=== PATIENT | male | born 1980 ===

== ENCOUNTER 2018-08-31 07:20 | Inpatient (IN) | payer SELFPAY ==
[2018-08-31] MEDS ORDERED: Sodium Chloride 0.9% 1,000 ML IV STA (08:53)
--- NOTE | 2018-08-31 09:06 | ED PDOC ---
HPI:Nausea, Vomiting, Diarrhea Time Seen by Provider: 08/31/18 08:18 Chief Complaint (Nursing): Headache Chief Complaint (Provider): Vomiting and Headache History Per: Patient History/Exam Limitations: no limitations Onset/Duration Of Symptoms: Days Current Symptoms Are (Timing): Still Present Associated Symptoms: Nausea, Vomiting Additional Complaint(s): 38 y/o male with a PMHx of HIV presents to the ED for evaluation of vomiting. Patient reports he was seen last Sunday at [facility] for the same symptom and was discharged home. As per discharge paperwork, patient was discharged with a diagnosis of alcohol use, elevated liver enzymes and gastritis. However, patient reports of no improvement since discharge. At this time, patient states vomiting is associated with yellow skin and itchy skin, headache, lightheadedness, nausea and decreased appetite. Patient reports he only develops a headache when he eats and typically goes away on its own. Otherwise, patient denies headache any other time. Patient reports yellow, itchy skin only began 2 days ago and was not present when he was seen and evaluated at [facility]. Patient additionally reports his last drink was last week. At this time, patient denies diarrhea, abdominal pain, alcohol use, drug use, chest pain and shortness of breath. Headache is mild, not worst in his life. No numbness, tingles, neck pain. PMD: Tristan Argaon from [facility] in [place], [place]. Past Medical History Reviewed: Historical Data, Nursing Documentation, Vital Signs Vital Signs: Last Vital Signs Temp 98.7 F 08/31/18 07:26 Pulse 76 08/31/18 07:26 Resp 18 08/31/18 07:26 BP 137/76 08/31/18 07:26 Pulse Ox 97 08/31/18 07:26 - Medical History PMH: Gastritis, HIV - Surgical History Surgical History: No Surg Hx - Family History Family History: States: Unknown Family Hx - Social History Alcohol: None (Last use was last week) Drugs: Denies - Immunization History Hx Tetanus Toxoid Vaccination: No Hx Influenza Vaccination: No Hx Pneumococcal Vaccination: No - Home Medications Home Medications: Ambulatory Orders Medication Instructions Recorded Ondansetron ODT [Zofran ODT] 1 odt PO BID PRN #10 odt 08/24/18 Pantoprazole Sodium [Protonix] 40 mg PO DAILY #15 ect 08/24/18 traZODone [trazodone Hydrochloride] 100 mg PO HS 08/24/18 - Allergies Allergies/Adverse Reactions: Allergies Allergy/AdvReac Type Severity Reaction Status Date / Time No Known Allergies Allergy Verified 08/24/18 20:19 Review of Systems ROS Statement: Except As Marked, All Systems Reviewed And Found Negative Cardiovascular: Negative for: Chest Pain Respiratory: Negative for: Shortness of Breath Gastrointestinal: Positive for: Nausea, Vomiting, Other (decreased appetite). Negative for: Abdominal Pain, Diarrhea Skin: Positive for: Jaundice, Other (Itchy) Neurological: Positive for: Headache (only when eating. ), Other (Lightheadedness) Physical Exam - Reviewed Nursing Documentation Reviewed: Yes Vital Signs Reviewed: Yes - Physical Exam Appears: Positive for: Uncomfortable Head Exam: Positive for: ATRAUMATIC Skin: Positive for: Jaundice Eye Exam: Positive for: EOMI, PERRL, Scleral icterus. Negative for: Periorbital swelling, Periorbital tenderness ENT: Positive for: Normal ENT Inspection. Negative for: Nasal Congestion Neck: Positive for: Normal Cardiovascular/Chest: Positive for: Regular Rate, Rhythm. Negative for: Murmur Respiratory: Positive for: Normal Breath Sounds. Negative for: Respiratory Distress Gastrointestinal/Abdominal: Positive for: Soft, Tenderness (Mild tenderenss to the RUQ, LUQ and epigastric area) Back: Negative for: L CVA Tenderness, R CVA Tenderness Extremity: Positive for: Normal ROM. Negative for: Deformity Neurologic/Psych: Positive for: Alert, cylinder valve repairer II-XII, Oriented (x3). Negative for: Motor/Sensory Deficits, Facial Droop - Laboratory Results Result Diagrams: 08/31/18 09:18 08/31/18 09:18 Interpretation Of Abn Labs: 14 bili, elevated liver enzymes - ECG O2 Sat by Pulse Oximetry: 97 (RA) Pulse Ox Interpretation: Normal - CT Scan/US US Other Rad Studies (CT/US): Radiology Report Reviewed Other Rad Interpretation: 6.4mm wall thickness - Progress ED Course And Treament: 1121: Pt. stable. AAOx3. Surgery to see pt. 1145: Spoke with Dr. Marinelli. Agrees with current care. Wants surgery to see pt. Will give antibiotics. 1150: Stable. Spoke with Dr. Hermosillo. Will admit. Pain controlled. - Critical Care Total Time (In Min): 30 Documented Critical Care: Time excludes all time spent performint seperately billable procedures Medical Decision Making Medical Decision Making: Time: 917 Impression: Previous records reviewed, patient seen and evaluated at [facility] ER on 08/25. CT Abd/Pelvis of the patient showed hepatic steatosis and potential cholecystitis. Plan: -- VBG -- Alcohol Serum -- CMP -- Urine Drug Screen -- Lipase -- CBC with Differentials -- PTT -- Prothrombin Time -- Sodium Chloride IV 1000 mls/hr -- Pepcid 20 mg IVP -- Zofran INJ 4 mg IV -- Blood Culture -- US Abdomen Limited Scribe Attestation: Documented by Anna Gomez, acting as a scribe for Yifan Cortez MD. Provider Scribe Attestation: All medical record entries made by the Scribe were at my direction and personally dictated by me. I have reviewed the chart and agree that the record accurately reflects my personal performance of the history, physical exam, medical decision making, and the department course for this patient. I have also personally directed, reviewed, and agree with the discharge instructions and disposition. Disposition - Clinical Impression Clinical Impression: Elevated liver enzymes, Jaundice, Cholecystitis - Patient ED Disposition Is Patient to be Admitted: Yes Counseled Patient/Family Regarding: Studies Performed, Diagnosis - Disposition Disposition Time: 11:00 Condition: FAIR - Pt Status Changed To: Hospital Disposition Of: Inpatient - Admit Certification Admit to Inpatient:: After my assessment, the patient will require hospitalization for at least two midnights. This is because of the severity of symptoms shown, intensity of services needed, and/or the medical risk in this patient being treated as an outpatient. - POA Present On Arrival: None
[2018-08-31 09:21] LABS: BASO # 0.1 K/uL (0.0-0.2); BASO % 2.4 % (0.0-2.0); HEMOGLOBIN 15.4 g/dL (12.0-18.0); LYMPH # 1.3 K/uL (1.0-4.3); LYMPH % 31.6 % (20.0-40.0); MEAN CELL VOLUME 87.4 fl (80.0-94.0); MEAN CORPUSCULAR HEMOGLOBIN 29.5 pg (27.0-31.0); MEAN CORPUSCULAR HGB CONC 33.8 g/dL (33.0-37.0); MEAN PLATELET VOLUME 8.4 fl (7.2-11.7); MONO # 0.6 K/uL (0.0-0.8); NEUT # 2.2 K/uL (1.8-7.0); RBC 5.22 Mil/uL (4.40-5.90); RED CELL DISTRIBUTION WIDTH 15.4 % (11.5-14.5); WHITE BLOOD COUNT 4.3 K/uL (4.8-10.8)
[2018-08-31 09:34] LABS: INR 1.2; PROTHROMBIN TIME 13.3 Seconds (9.8-13.1)
[2018-08-31 09:36] LABS: PARTIAL THROMBOPLASTIN TIME 39.1 Seconds (25.6-37.1)
[2018-08-31 09:37] LABS: ALB/GLOB RATIO 0.9 (1.0-2.1); ALBUMIN 3.8 g/dL (3.5-5.0); ALT/SGPT 507 U/L (21-72); AST/SGOT 514 U/L (17-59); BLOOD UREA NITROGEN 3 mg/dl (9-20); GFR NON-AFRICAN AMERICAN > 60; LIPASE 124 U/L (23-300)
[2018-08-31 09:57] LABS: VENOUS BLOOD GAS BASE EXCESS 2.4 mmol/L (0.0-2.0); VENOUS BLOOD GAS PCO2 42 mmHg (40-60); VENOUS BLOOD GAS PO2 39 mm/Hg (30-55); VENOUS BLOOD PH 7.42 (7.32-7.43)
[2018-08-31 09:58] LABS: BARBITURATES, UR NEGATIVE (NEGATIVE); BENZODIAZEPINES, UR NEGATIVE (NEGATIVE); OPIATES, UR NEGATIVE (NEGATIVE); PHENCYCLIDINE, UR NEGATIVE (NEGATIVE)
[2018-08-31] MEDS ORDERED: cefTRIAXone (Rocephin) 1 gm Inj IV ONE (11:51)
[2018-08-31] MEDS ORDERED: metroNIDAZOLE 500mg/100ml NS 100 ML IV STA (11:51)
--- NOTE | 2018-08-31 12:06 | CP.PCM.CON ---
<Clarence Aj - Last Filed: 08/31/18 12:41> History of Present Illness - History of Present Illness History of Present Illness: General Surgery Consult Note- Dr. Darden 38M pmhx significant for HIV on Genvoya, ETOH abuse for 2 years presents to [facility] ED today for continuing yellow in eyes, nausea and non-bloody, serobilious vomiting for greater than 1 week. Emesis provoked after drinking etoh. Patient admits to drinking beer, at least two 6 packs per day for 2 years. In addition states right and left subcostal abdominal pain after drinking. Pain is currently subsided during examination. Of note patient went to [facility] last week with similar symptoms however was discharged home in stable condition after abd pain resolved. During ED workup: US showed GBW thickening approx 6.5 mm, no pericholecystic fluid, CBD 2.5mm. Transamnitis, and elevated t.bili, subsequently surgery was consulted. PMH: stated above. last HIV check was 2 months ago, stated undetectable. 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 at [facility] PSH: denies ALL: NKDA SocialHx: Drinks 2 6ppd for 2+ years after finding out pt had HIV, denies tobacco, recreational drug use FH: non-contributory ROS: 12 pt ROS conducted, negative otherwise stated above Review of Systems - Review of Systems All systems: reviewed and no additional remarkable complaints except - Constitutional Constitutional: As Per HPI Past Patient History - Infectious Disease Hx of Infectious Diseases: None - Past Social History Alcohol: None (Last use was last week) Drugs: Denies - HEMATOLOGICAL/ONCOLOGICAL Hx Human Immunodeficiency Virus (HIV): Yes - GASTROINTESTINAL Hx Gastritis: Yes - PSYCHIATRIC Hx Substance Use: No - SURGICAL HISTORY Hx Surgeries: No - ANESTHESIA Hx Anesthesia: No Hx Anesthesia Reactions: No Hx Malignant Hyperthermia: No Meds Allergies/Adverse Reactions: Allergies Allergy/AdvReac Type Severity Reaction Status Date / Time No Known Allergies Allergy Verified 08/24/18 20:19 - Medications Medications: Current Medications Ceftriaxone Sodium (Rocephin) 1 gm IV ONCE ONE; Protocol Stop: 08/31/18 11:52 Metronidazole (Flagyl 500mg/100ml Ns) 100 mls @ 100 mls/hr IV STAT STA; Protocol Stop: 08/31/18 12:50 Physical Exam - Constitutional Appears: Non-toxic, No Acute Distress - Head Exam Head Exam: ATRAUMATIC - Eye Exam Eye Exam: Scleral icterus - ENT Exam ENT Exam: Mucous Membranes Moist - Neck Exam Neck exam: Positive for: Normal Inspection. Negative for: Lymphadenopathy - Respiratory Exam Respiratory Exam: NORMAL BREATHING PATTERN. absent: Accessory Muscle Use, Re spiratory Distress - Cardiovascular Exam Cardiovascular Exam: REGULAR RHYTHM, +S1, +S2. absent: Bradycardia, Tachycardia - GI/Abdominal Exam GI & Abdominal Exam: Distended (baseline distendtion), Normal Bowel Sounds, Soft . absent: Firm, Guarding, Rebound, Rigid, Tenderness - Extremities Exam Extremities exam: Positive for: normal inspection. Negative for: calf tenderness - Neurological Exam Neurological exam: Alert, Oriented x3 - Psychiatric Exam Psychiatric exam: Normal Affect - Skin Skin Exam: Intact, Warm Results - Vital Signs Recent Vital Signs: Last Vital Signs Temp 98.7 F 08/31/18 07:26 Pulse 76 08/31/18 07:26 Resp 18 08/31/18 07:26 BP 137/76 08/31/18 07:26 Pulse Ox 97 08/31/18 11:53 - Labs Result Diagrams: 08/31/18 09:18 08/31/18 09:18 Labs: Laboratory Results - last 24 hr 08/31/18 08/31/18 08/31/18 09:18 09:18 09:18 WBC 4.3 L RBC 5.22 Hgb 15.4 Hct 45.6 MCV 87.4 MCH 29.5 MCHC 33.8 RDW 15.4 H Plt Count 177 MPV 8.4 Neut % (Auto) 52.0 Lymph % (Auto) 31.6 [place] % (Auto) 13.0 H Eos % (Auto) 1.0 Baso % (Auto) 2.4 H Neut # (Auto) 2.2 Lymph # (Auto) 1.3 [place] # (Auto) 0.6 Eos # (Auto) 0.0 Baso # (Auto) 0.1 PT INR APTT pO2 VBG pH VBG pCO2 VBG HCO3 VBG Total CO2 VBG O2 Sat (Calc) VBG Base Excess VBG Potassium Glucose Lactate FiO2 Sodium 139 Potassium 4.3 Chloride 105 Carbon Dioxide 24 Anion Gap 14 BUN 3 L Creatinine 0.7 L Est GFR ( Amer) > 60 Est GFR (Non-Af Amer) > 60 Random Glucose 100 Calcium 9.0 Total Bilirubin 14.0 H AST 514 H D ALT 507 H Alkaline Phosphatase 186 H D Total Protein 8.0 Albumin 3.8 Globulin 4.1 H Albumin/Globulin Ratio 0.9 L Lipase 124 Venous Blood Potassium Urine Opiates Screen Negative Urine Methadone Screen Negative Ur Barbiturates Screen Negative Ur Phencyclidine Scrn Negative Ur Amphetamines Screen Negative U Benzodiazepines Scrn Negative U Oth Cocaine Metabols Negative U Cannabinoids Screen Negative Alcohol, Quantitative < 10 08/31/18 08/31/18 09:18 09:45 WBC RBC Hgb Hct MCV MCH MCHC RDW Plt Count MPV Neut % (Auto) Lymph % (Auto) [place] % (Auto) Eos % (Auto) Baso % (Auto) Neut # (Auto) Lymph # (Auto) [place] # (Auto) Eos # (Auto) Baso # (Auto) PT 13.3 H INR 1.2 APTT 39.1 H pO2 39 VBG pH 7.42 VBG pCO2 42 VBG HCO3 26.2 VBG Total CO2 28.5 H VBG O2 Sat (Calc) 79.6 H VBG Base Excess 2.4 H VBG Potassium 5.8 H Glucose 100 Lactate 0.9 FiO2 21.0 Sodium 132.0 Potassium Chloride 103.0 Carbon Dioxide Anion Gap BUN Creatinine Est GFR ( Amer) Est GFR (Non-Af Amer) Random Glucose Calcium Total Bilirubin AST ALT Alkaline Phosphatase Total Protein Albumin Globulin Albumin/Globulin Ratio Lipase Venous Blood Potassium 5.8 H Urine Opiates Screen Urine Methadone Screen Ur Barbiturates Screen Ur Phencyclidine Scrn Ur Amphetamines Screen U Benzodiazepines Scrn U Oth Cocaine Metabols U Cannabinoids Screen Alcohol, Quantitative Assessment & Plan - Assessment and Plan (Free Text) Assessment: 38M pmhx HIV on Genvoya, hx of ETOH use, w/ Transaminitis, hyperbilirubenemia, r/o acute cholecystitis Child-Zavala: Class B MELD: 18 Plan: - t.bili 14.0; recommend fractionated bili - Etiology likely not acute cholecystitis - Obtain hepatitis Pannel - c/w home Meds - recommend GI consult - d/w surgical attending PGY2 <Mario Darden - Last Filed: 08/31/18 16:27> History of Present Illness - History of Present Illness History of Present Illness: Patient was seen and examined at the bedside. Agree with resident's note above. Meds - Medications Medications: Current Medications Lactated Ringer's (Lactated Ringer's) 1,000 mls @ 125 mls/hr IV .Q8H SURJIT Physical Exam - GI/Abdominal Exam Additional comments: soft, NT, mildly distended, BS+, no rebound, no guarding Results - Vital Signs Recent Vital Signs: Last Vital Signs Temp 98.3 F 08/31/18 13:14 Pulse 62 08/31/18 13:14 Resp 20 08/31/18 13:14 BP 116/59 L 08/31/18 13:14 Pulse Ox 97 08/31/18 13:14 - Labs Result Diagrams: 08/31/18 09:18 08/31/18 09:18 Labs: Laboratory Results - last 24 hr 08/31/18 08/31/18 08/31/18 09:18 09:18 09:18 WBC 4.3 L RBC 5.22 Hgb 15.4 Hct 45.6 MCV 87.4 MCH 29.5 MCHC 33.8 RDW 15.4 H Plt Count 177 MPV 8.4 Neut % (Auto) 52.0 Lymph % (Auto) 31.6 [place] % (Auto) 13.0 H Eos % (Auto) 1.0 Baso % (Auto) 2.4 H Neut # (Auto) 2.2 Lymph # (Auto) 1.3 [place] # (Auto) 0.6 Eos # (Auto) 0.0 Baso # (Auto) 0.1 PT INR APTT pO2 VBG pH VBG pCO2 VBG HCO3 VBG Total CO2 VBG O2 Sat (Calc) VBG Base Excess VBG Potassium Glucose Lactate FiO2 Sodium 139 Potassium 4.3 Chloride 105 Carbon Dioxide 24 Anion Gap 14 BUN 3 L Creatinine 0.7 L Est GFR ( Amer) > 60 Est GFR (Non-Af Amer) > 60 Random Glucose 100 Calcium 9.0 Total Bilirubin 14.0 H AST 514 H D ALT 507 H Alkaline Phosphatase 186 H D Total Protein 8.0 Albumin 3.8 Globulin 4.1 H Albumin/Globulin Ratio 0.9 L Lipase 124 Venous Blood Potassium Urine Opiates Screen Negative Urine Methadone Screen Negative Ur Barbiturates Screen Negative Ur Phencyclidine Scrn Negative Ur Amphetamines Screen Negative U Benzodiazepines Scrn Negative U Oth Cocaine Metabols Negative U Cannabinoids Screen Negative Alcohol, Quantitative < 10 08/31/18 08/31/18 09:18 09:45 WBC RBC Hgb Hct MCV MCH MCHC RDW Plt Count MPV Neut % (Auto) Lymph % (Auto) [place] % (Auto) Eos % (Auto) Baso % (Auto) Neut # (Auto) Lymph # (Auto) [place] # (Auto) Eos # (Auto) Baso # (Auto) PT 13.3 H INR 1.2 APTT 39.1 H pO2 39 VBG pH 7.42 VBG pCO2 42 VBG HCO3 26.2 VBG Total CO2 28.5 H VBG O2 Sat (Calc) 79.6 H VBG Base Excess 2.4 H VBG Potassium 5.8 H Glucose 100 Lactate 0.9 FiO2 21.0 Sodium 132.0 Potassium Chloride 103.0 Carbon Dioxide Anion Gap BUN Creatinine Est GFR ( Amer) Est GFR (Non-Af Amer) Random Glucose Calcium Total Bilirubin AST ALT Alkaline Phosphatase Total Protein Albumin Globulin Albumin/Globulin Ratio Lipase Venous Blood Potassium 5.8 H Urine Opiates Screen Urine Methadone Screen Ur Barbiturates Screen Ur Phencyclidine Scrn Ur Amphetamines Screen U Benzodiazepines Scrn U Oth Cocaine Metabols U Cannabinoids Screen Alcohol, Quantitative - Imaging and Cardiology US - abdomen Status: Image reviewed by me, Report reviewed by me Assessment & Plan - Assessment and Plan (Free Text) Plan: - Clear liquid diet - repeat labs in am - GI consultation - Will follow
[2018-08-31] MEDS ORDERED: metroNIDAZOLE 500mg/100ml NS 100 ML IVPB ONE (12:17)
[2018-08-31] MEDS ORDERED: cefTRIAXone (Rocephin) 1 gm Inj ONE (12:17)
[2018-08-31] MEDS ORDERED: Lactated Ringer's 1,000 ML IV SCH (13:00)
--- NOTE | 2018-08-31 13:22 | US ---
Date of service: 08/31/2018 HISTORY: jaundice; abd pain COMPARISON: None. TECHNIQUE: Sonographic evaluation of the abdomen. FINDINGS: LIVER: Measures 21 cm. Increased echogenicity of the liver parenchyma. No mass. No intrahepatic bile duct dilatation. GALLBLADDER: Gallbladder wall thickening without calculi. COMMON BILE DUCT: Measures mm. No stones. No dilatation. PANCREAS: Unremarkable as visualized. No mass. No ductal dilatation. RIGHT KIDNEY: Measures cm. Normal echogenicity. No calculus, mass, or hydronephrosis. LEFT KIDNEY: Measures cm. Normal echogenicity. No calculus, mass, or hydronephrosis. SPLEEN: Normal in size and contour. No mass. AORTA: No aneurysmal dilatation. IVC: Unremarkable. OTHER FINDINGS: None. IMPRESSION: Thickened gallbladder wall possibly jd due the non NPO state. Hepatomegaly. Fatty infiltration of the liver.
[2018-08-31] MEDS: Lactated Ringer's 1,000 ML IV SCH (16:43)
[2018-08-31] MEDS ORDERED: Pneumococcal 23-Valent Vaccine IM ONE (16:51)
--- NOTE | 2018-08-31 23:32 | CP.PCM.CON ---
History of Present Illness - History of Present Illness History of Present Illness: 38 yo male with h/o heavy alcohol use admitted with nausea and markedly elevated LFTs. Was seen in ER with similar presention a week ago. Has minimal transient abdominal pain. Review of Systems - Constitutional Constitutional: absent: Chills - EENT Eyes: absent: Blurred Vision Ears: absent: Decreased Hearing Nose/Mouth/Throat: absent: Epistaxis - Cardiovascular Cardiovascular: absent: Chest Pain - Respiratory Respiratory: absent: Dyspnea - Gastrointestinal Gastrointestinal: As Per HPI - Genitourinary Genitourinary: absent: Change in Urinary Stream Past Patient History - Infectious Disease Hx of Infectious Diseases: None - Past Medical History & Family History Past Medical History?: Yes - Past Social History Smoking Status: Never Smoked - CARDIAC Hx Cardiac Disorders: No - PULMONARY Hx Respiratory Disorders: No - NEUROLOGICAL Hx Neurological Disorder: No - HEENT Hx HEENT Problems: No - RENAL Hx Chronic Kidney Disease: No - ENDOCRINE/METABOLIC Hx Endocrine Disorders: No - HEMATOLOGICAL/ONCOLOGICAL Hx Blood Disorders: Yes Hx AIDS: No Hx Human Immunodeficiency Virus (HIV): Yes - INTEGUMENTARY Hx Dermatological Problems: No - MUSCULOSKELETAL/RHEUMATOLOGICAL Hx Musculoskeletal Disorders: No Hx Falls: No - GASTROINTESTINAL Hx Gastrointestinal Disorders: Yes Hx Gastritis: Yes - GENITOURINARY/GYNECOLOGICAL Hx Genitourinary Disorders: No - PSYCHIATRIC Hx Substance Use: No - SURGICAL HISTORY Hx Surgeries: No - ANESTHESIA Hx Anesthesia: No Hx Anesthesia Reactions: No Hx Malignant Hyperthermia: No Has any member of the family had a problem w/ anesthesia?: No Meds Allergies/Adverse Reactions: Allergies Allergy/AdvReac Type Severity Reaction Status Date / Time No Known Allergies Allergy Verified 08/24/18 20:19 - Medications Medications: Current Medications Famotidine (Pepcid) 20 mg PO BID [facility] Last Admin: 08/31/18 17:37 Dose: 20 mg Lactated Ringer's (Lactated Ringer's) 1,000 mls @ 125 mls/hr IV .Q8H [facility] Last Admin: 08/31/18 16:43 Dose: 125 mls/hr Ondansetron HCl (Zofran Inj) 4 mg IVP Q6 PRN PRN Reason: Nausea/Vomiting Physical Exam - Constitutional Appears: No Acute Distress - Head Exam Head Exam: ATRAUMATIC - Eye Exam Eye Exam: Scleral icterus Pupil Exam: PERRL - ENT Exam ENT Exam: Mucous Membranes Moist - Neck Exam Neck exam: Positive for: Normal Inspection - Respiratory Exam Respiratory Exam: Clear to Auscultation Bilateral - Cardiovascular Exam Cardiovascular Exam: REGULAR RHYTHM, +S1, +S2 - GI/Abdominal Exam GI & Abdominal Exam: Normal Bowel Sounds, Soft. absent: Tenderness - Rectal Exam Rectal Exam: Deferred - Exam Exam: NORMAL INSPECTION Results - Vital Signs Recent Vital Signs: Last Vital Signs Temp 99.5 F 08/31/18 20:33 Pulse 63 08/31/18 20:33 Resp 20 08/31/18 20:33 BP 120/77 08/31/18 20:33 Pulse Ox 97 08/31/18 20:33 - Labs Result Diagrams: 08/31/18 09:18 08/31/18 09:18 Labs: Laboratory Results - last 24 hr 08/31/18 08/31/18 08/31/18 09:18 09:18 09:18 WBC 4.3 L RBC 5.22 Hgb 15.4 Hct 45.6 MCV 87.4 MCH 29.5 MCHC 33.8 RDW 15.4 H Plt Count 177 MPV 8.4 Neut % (Auto) 52.0 Lymph % (Auto) 31.6 [place] % (Auto) 13.0 H Eos % (Auto) 1.0 Baso % (Auto) 2.4 H Neut # (Auto) 2.2 Lymph # (Auto) 1.3 [place] # (Auto) 0.6 Eos # (Auto) 0.0 Baso # (Auto) 0.1 PT INR APTT pO2 VBG pH VBG pCO2 VBG HCO3 VBG Total CO2 VBG O2 Sat (Calc) VBG Base Excess VBG Potassium Glucose Lactate FiO2 Sodium 139 Potassium 4.3 Chloride 105 Carbon Dioxide 24 Anion Gap 14 BUN 3 L Creatinine 0.7 L Est GFR ( Amer) > 60 Est GFR (Non-Af Amer) > 60 Random Glucose 100 Calcium 9.0 Total Bilirubin 14.0 H AST 514 H D ALT 507 H Alkaline Phosphatase 186 H D Total Protein 8.0 Albumin 3.8 Globulin 4.1 H Albumin/Globulin Ratio 0.9 L Lipase 124 Venous Blood Potassium Urine Opiates Screen Negative Urine Methadone Screen Negative Ur Barbiturates Screen Negative Ur Phencyclidine Scrn Negative Ur Amphetamines Screen Negative U Benzodiazepines Scrn Negative U Oth Cocaine Metabols Negative U Cannabinoids Screen Negative Alcohol, Quantitative < 10 08/31/18 08/31/18 09:18 09:45 WBC RBC Hgb Hct MCV MCH MCHC RDW Plt Count MPV Neut % (Auto) Lymph % (Auto) [place] % (Auto) Eos % (Auto) Baso % (Auto) Neut # (Auto) Lymph # (Auto) [place] # (Auto) Eos # (Auto) Baso # (Auto) PT 13.3 H INR 1.2 APTT 39.1 H pO2 39 VBG pH 7.42 VBG pCO2 42 VBG HCO3 26.2 VBG Total CO2 28.5 H VBG O2 Sat (Calc) 79.6 H VBG Base Excess 2.4 H VBG Potassium 5.8 H Glucose 100 Lactate 0.9 FiO2 21.0 Sodium 132.0 Potassium Chloride 103.0 Carbon Dioxide Anion Gap BUN Creatinine Est GFR ( Amer) Est GFR (Non-Af Amer) Random Glucose Calcium Total Bilirubin AST ALT Alkaline Phosphatase Total Protein Albumin Globulin Albumin/Globulin Ratio Lipase Venous Blood Potassium 5.8 H Urine Opiates Screen Urine Methadone Screen Ur Barbiturates Screen Ur Phencyclidine Scrn Ur Amphetamines Screen U Benzodiazepines Scrn U Oth Cocaine Metabols U Cannabinoids Screen Alcohol, Quantitative - Imaging and Cardiology US - abdomen Status: Report reviewed by me Assessment & Plan (1) Elevated liver enzymes Assessment and Plan: Presentation most c/w acute hepatitis, either viral or Etoh induced. Will advance diet and follow labs. Status: Acute
[2018-09-01 06:43] LABS: BASO # 0.1 K/uL (0.0-0.2); BASO % 1.2 % (0.0-2.0); HEMOGLOBIN 15.1 g/dL (12.0-18.0); LYMPH # 1.4 K/uL (1.0-4.3); LYMPH % 31.4 % (20.0-40.0); MEAN CELL VOLUME 89.9 fl (80.0-94.0); MEAN CORPUSCULAR HEMOGLOBIN 29.2 pg (27.0-31.0); MEAN CORPUSCULAR HGB CONC 32.4 g/dL (33.0-37.0); MEAN PLATELET VOLUME 8.4 fl (7.2-11.7); MONO # 0.6 K/uL (0.0-0.8); MONO % 13.3 % (0.0-10.0); NEUT # 2.4 K/uL (1.8-7.0); NEUT % 53.1 % (50.0-75.0); NRBC % 0.2 % (0.0-0.0); RBC 5.18 Mil/uL (4.40-5.90); RED CELL DISTRIBUTION WIDTH 15.5 % (11.5-14.5); WHITE BLOOD COUNT 4.6 K/uL (4.8-10.8)
[2018-09-01 08:09] LABS: HEMOGLOBIN 15.5 g/dL (12.0-18.0); MEAN CORPUSCULAR HEMOGLOBIN 29.3 pg (27.0-31.0); MEAN CORPUSCULAR HGB CONC 32.6 g/dL (33.0-37.0); RBC 5.3 Mil/uL (4.40-5.90); RED CELL DISTRIBUTION WIDTH 15.3 % (11.5-14.5); WHITE BLOOD COUNT 4.2 K/uL (4.8-10.8)
[2018-09-01 08:20] LABS: INR 1.2; PROTHROMBIN TIME 13.2 Seconds (9.8-13.1)
--- NOTE | 2018-09-01 08:20 | CP.PCM.PN ---
<JhonnyClarence dos santos - Last Filed: 09/01/18 08:16> Subjective - Date & Time of Evaluation Date of Evaluation: 09/01/18 Time of Evaluation: 07:00 - Subjective Subjective: Surgery Progress Note- Dr. Darden Patient seen and examined at bedside. No acute complaints. Tolerating CLD. Denies acute abdominal pain. + OOB and ambulating. Denies fevers, chills, chest pain, shortness of breath, nausea, vomiting, diarrhea. Objective - Vital Signs/Intake and Output Vital Signs (last 24 hours): Temp Pulse Resp BP Pulse Ox 99.6 F 75 18 108/69 98 09/01/18 05:00 09/01/18 05:00 09/01/18 05:00 09/01/18 05:00 09/01/18 05:00 - Medications Medications: Current Medications Famotidine (Pepcid) 20 mg PO BID [facility] Last Admin: 08/31/18 17:37 Dose: 20 mg Lactated Ringer's (Lactated Ringer's) 1,000 mls @ 125 mls/hr IV .Q8H [facility] Last Admin: 08/31/18 16:43 Dose: 125 mls/hr Ondansetron HCl (Zofran Inj) 4 mg IVP Q6 PRN PRN Reason: Nausea/Vomiting - Labs Labs: 09/01/18 05:30 08/31/18 09:18 PT 13.3 Seconds (9.8-13.1) H 08/31/18 09:18 INR 1.2 08/31/18 09:18 APTT 39.1 Seconds (25.6-37.1) H 08/31/18 09:18 - Constitutional Appears: Non-toxic, No Acute Distress - Head Exam Head Exam: ATRAUMATIC - Eye Exam Eye Exam: EOMI, Scleral icterus - ENT Exam ENT Exam: Mucous Membranes Moist - Respiratory Exam Respiratory Exam: Clear to Ausculation Bilateral. absent: Accessory Muscle Use, Respiratory Distress - Cardiovascular Exam Cardiovascular Exam: REGULAR RHYTHM, +S1, +S2. absent: Bradycardia, Tachycardia - GI/Abdominal Exam GI & Abdominal Exam: Soft. absent: Distended, Firm, Guarding, Rigid, Tenderness - Extremities Exam Extremities Exam: Normal Inspection. absent: Calf Tenderness - Neurological Exam Neurological Exam: Alert, Awake, Oriented x3 - Skin Skin Exam: Warm Additional comments: Jaundice Assessment and Plan - Assessment and Plan (Free Text) Assessment: 38M w/ transaminitis, hyperbilirubenia likely 2/2 hepatitis, no acute cholecystitis Plan: - c/s GI; all recs appreciated- ADAT - f/u hepatitis pannel - not acute cholecytitis; likely ETOH or viral hepatitis - no acute surgical intervention indicated at this time - d/w Surgical attending PGY2 <Mario Darden - Last Filed: 09/01/18 12:39> Subjective - Date & Time of Evaluation Time of Evaluation: 12:20 - Subjective Subjective: Patient was seen and examined at the bedside. Agree with resident's note above. Objective - Vital Signs/Intake and Output Vital Signs (last 24 hours): Temp Pulse Resp BP Pulse Ox 99.2 F 61 18 118/76 98 09/01/18 12:12 09/01/18 12:12 09/01/18 12:12 09/01/18 12:12 09/01/18 12:12 - Medications Medications: Current Medications Famotidine (Pepcid) 20 mg PO BID [facility] Last Admin: 09/01/18 09:25 Dose: 20 mg Lactated Ringer's (Lactated Ringer's) 1,000 mls @ 125 mls/hr IV .Q8H [facility] Last Admin: 09/01/18 11:04 Dose: 125 mls/hr Ondansetron HCl (Zofran Inj) 4 mg IVP Q6 PRN PRN Reason: Nausea/Vomiting - Labs Labs: 09/01/18 06:00 09/01/18 09:35 PT 13.2 Seconds (9.8-13.1) H 09/01/18 06:00 INR 1.2 09/01/18 06:00 APTT 39.1 Seconds (25.6-37.1) H 08/31/18 09:18 - GI/Abdominal Exam Additional comments: soft, NT, ND, BS+, no rebound, no guarding, negative Gonzales's sign Assessment and Plan - Assessment and Plan (Free Text) Plan: - Regular diet - Continue care as per medical and GI teams - No general surgery intervention at present time - General surgery will sign off - Please re-consult as needed
[2018-09-01 08:29] LABS: BILIRUBIN,DIRECT 13.1 mg/ml (0.0-0.4)
[2018-09-01 10:00] LABS: ALB/GLOB RATIO 0.9 (1.0-2.1); ALBUMIN 3.9 g/dL (3.5-5.0); ALT/SGPT 379 U/L (21-72); AST/SGOT 318 U/L (17-59); BLOOD UREA NITROGEN 4 mg/dl (9-20); CALCIUM 9.1 mg/dL (8.4-10.2); GFR NON-AFRICAN AMERICAN > 60
[2018-09-01] MEDS: Lactated Ringer's 1,000 ML IV SCH ×3 (11:04→22:59)
--- NOTE | 2018-09-01 11:15 | CP.PCM.HP ---
History of Present Illness - History of Present Illness History of Present Illness: 38 y/o male with a PMHx of HIV presented to the ED for evaluation of vomiting. Patient was found to have significantly elevated LFTs and bilirubin. CT Abd/Pelvis of the patient showed hepatic steatosis and potential cholecystitis. surgery was consulted. Patient seen and examined at bedside. no acute events overnight states he feels well, mild discomfort of ruq. no other complaints at this time admits to heavy drinking. Present on Admission - Present on Admission Any Indicators Present on Admission: No Review of Systems - Review of Systems All systems: reviewed and no additional remarkable complaints except (mentioned as above) Past Patient History - Infectious Disease Hx of Infectious Diseases: None - Past Medical History & Family History Past Medical History?: Yes - Past Social History Smoking Status: Never Smoked - CARDIAC Hx Cardiac Disorders: No - PULMONARY Hx Respiratory Disorders: No - NEUROLOGICAL Hx Neurological Disorder: No - HEENT Hx HEENT Problems: No - RENAL Hx Chronic Kidney Disease: No - ENDOCRINE/METABOLIC Hx Endocrine Disorders: No - HEMATOLOGICAL/ONCOLOGICAL Hx Blood Disorders: Yes Hx AIDS: No Hx Human Immunodeficiency Virus (HIV): Yes - INTEGUMENTARY Hx Dermatological Problems: No - MUSCULOSKELETAL/RHEUMATOLOGICAL Hx Musculoskeletal Disorders: No Hx Falls: No - GASTROINTESTINAL Hx Gastrointestinal Disorders: Yes Hx Gastritis: Yes - GENITOURINARY/GYNECOLOGICAL Hx Genitourinary Disorders: No - PSYCHIATRIC Hx Substance Use: No - SURGICAL HISTORY Hx Surgeries: No - ANESTHESIA Hx Anesthesia: No Hx Anesthesia Reactions: No Hx Malignant Hyperthermia: No Has any member of the family had a problem w/ anesthesia?: No Meds Allergies/Adverse Reactions: Allergies Allergy/AdvReac Type Severity Reaction Status Date / Time No Known Allergies Allergy Verified 08/24/18 20:19 Physical Exam - Constitutional Appears: Non-toxic, No Acute Distress - Head Exam Head Exam: NORMAL INSPECTION - Eye Exam Eye Exam: Scleral icterus - Neck Exam Neck exam: Positive for: Normal Inspection - Respiratory Exam Respiratory Exam: Clear to Auscultation Bilateral, NORMAL BREATHING PATTERN - Cardiovascular Exam Cardiovascular Exam: RRR, +S1, +S2 - GI/Abdominal Exam GI & Abdominal Exam: Normal Bowel Sounds, Soft - Extremities Exam Extremities exam: Positive for: normal inspection - Back Exam Back exam: NORMAL INSPECTION - Neurological Exam Neurological exam: Alert, Oriented x3 - Psychiatric Exam Psychiatric exam: Normal Affect, Normal Mood - Skin Skin Exam: Normal Color, Warm Results - Vital Signs Recent Vital Signs: Last Vital Signs Temp 98.6 F 09/01/18 08:43 Pulse 57 L 09/01/18 08:43 Resp 18 09/01/18 08:43 BP 114/70 09/01/18 08:43 Pulse Ox 98 09/01/18 08:43 - Labs Result Diagrams: 09/01/18 06:00 09/02/18 04:20 Labs: Laboratory Results - last 24 hr 09/01/18 09/01/18 09/01/18 05:30 06:00 06:00 WBC 4.6 L RBC 5.18 Hgb 15.1 Hct 46.6 MCV 89.9 D MCH 29.2 MCHC 32.4 L RDW 15.5 H Plt Count 191 MPV 8.4 Neut % (Auto) 53.1 Lymph % (Auto) 31.4 [place] % (Auto) 13.3 H Eos % (Auto) 1.0 Baso % (Auto) 1.2 Neut # (Auto) 2.4 Lymph # (Auto) 1.4 [place] # (Auto) 0.6 Eos # (Auto) 0.0 Baso # (Auto) 0.1 PT 13.2 H INR 1.2 Sodium Potassium Chloride Carbon Dioxide Anion Gap BUN Creatinine Est GFR ( Amer) Est GFR (Non-Af Amer) Random Glucose Calcium Phosphorus 4.3 Magnesium 2.1 Total Bilirubin Direct Bilirubin 13.1 H AST ALT Alkaline Phosphatase Total Protein Albumin Globulin Albumin/Globulin Ratio 09/01/18 09/01/18 06:00 09:35 WBC 4.2 L RBC 5.30 Hgb 15.5 Hct 47.7 MCV 90.0 MCH 29.3 MCHC 32.6 L RDW 15.3 H Plt Count 196 MPV Neut % (Auto) Lymph % (Auto) [place] % (Auto) Eos % (Auto) Baso % (Auto) Neut # (Auto) Lymph # (Auto) [place] # (Auto) Eos # (Auto) Baso # (Auto) PT INR Sodium 137 Potassium 4.0 Chloride 102 Carbon Dioxide 24 Anion Gap 15 BUN 4 L Creatinine 0.6 L Est GFR ( Amer) > 60 Est GFR (Non-Af Amer) > 60 Random Glucose 111 H Calcium 9.1 Phosphorus Magnesium Total Bilirubin 15.0 H Direct Bilirubin AST 318 H D ALT 379 H D Alkaline Phosphatase 180 H Total Protein 8.1 Albumin 3.9 Globulin 4.2 H Albumin/Globulin Ratio 0.9 L Assessment & Plan - Assessment and Plan (Free Text) Assessment: 38M with PMHx of HIV on Genvoya, hx of ETOH use, admitted due to Transaminitis, hyperbilirubinemia plan surgery following GI following hold genvoya for now, recommend ID consult possibly due to etoh or hepatitis rest of plan as ordered
--- NOTE | 2018-09-01 13:29 | CP.PCM.CON ---
History of Present Illness - History of Present Illness History of Present Illness: 38M presents to [facility] ED today for continuing yellow in eyes, nausea and non- bloody, serobilious vomiting for greater than 1 week. Emesis provoked after drinking etoh. Patient admits to drinking beer, at least two 6 packs per day for 2 years. During ED workup: US showed GBW thickening approx 6.5 mm, no pericholecystic fluid, CBD 2.5mm. Transamnitis, and elevated t.bili, subsequently surgery was consulted. ID consulted HIDA scan ordered PMH: stated above. HIV on Genvoya, undetectable. PSH: denies ALL: NKDA SocialHx: Drinks 2 6ppd for 2+ years after finding out pt had HIV, denies tobacco, recreational drug use FH: non-contributory R Review of Systems - Review of Systems All systems: reviewed and no additional remarkable complaints except - Constitutional Constitutional: As Per HPI - EENT Eyes: As Per HPI Ears: absent: As Per HPI, Decreased Hearing, Ear Discharge, Ear Pain, Tinnitus, Abnormal Hearing, Disequilibrium, Dizziness, Other Nose/Mouth/Throat: absent: As Per HPI, Epistaxis, Nasal Congestion, Nasal Discharge, Nasal Obstruction, Nasal Trauma, Nose Pain, Post Nasal Drip, Sinus Pain, Sinus Pressure, Bleeding Gums, Change in Voice, Dental Pain, Dry Mouth, Dysphagia, Halitosis, Hoarsness, Lip Swelling, Mouth Lesions, Mouth Pain, Odynophagia, Sore Throat, Throat Swelling, Tongue Swelling, Facial Pain, Neck P ain, Neck Mass, Other - Cardiovascular Cardiovascular: absent: As Per HPI, Acrocyanosis, Chest Pain, Chest Pain at Rest, Chest Pain with Activity, Claudication, Diaphoresis, Dyspnea, Dyspnea on Exertion, Edema, Irregular Heart Rhythm, Pain Radiating to Arm/Neck/Jaw, Leg Edema, Leg Ulcers, Lightheadedness, Orthopnea, Palpitations, Paroxysmal Nocturnal Dyspnea, Pedal Edema, Radiating Pain, Rapid Heart Rate, Slow Heart Rate, Syncope, Other - Respiratory Respiratory: absent: As Per HPI, Cough, Dyspnea, Hemoptysis, Dyspnea on Exertion, Wheezing, Snoring, Stridor, Pain on Inspiration, Chest Congestion, Excessive Mucous Production, Change in Mucous Color, Pain with Coughing, Other - Gastrointestinal Gastrointestinal: As Per HPI, Abdominal Pain - Genitourinary Genitourinary: absent: As Per HPI, Change in Urinary Stream, Difficulty Urinating, Dysuria, Flank Pain, Hematuria, Pyuria, Nocturia, Urinary Incontinence, Urinary Frequency, Urinary Hesitance, Urinary Urgency, Voiding Freq/Small Amts, Freq UTI, Hx Renal/Bladder Calculi, Hx /Renal Surgery, Bladder Distension, Other - Musculoskeletal Musculoskeletal: absent: As Per HPI, Abnormal Gait, Arthralgias, Atrophy, Back Pain, Deformity, Joint Swelling, Limited Range of Motion, Loss of Height, Muscle Cramps, Muscle Weakness, Myalgias, Neck Pain, Numbness, Radiating Pain into Limb, Stiffness, Tingling, Other - Integumentary Integumentary: absent: As Per HPI, Acne, Alopecia, Bleeding Lesions, Change in Hair, Change in Nails, Change in Pigmentation, Changing Lesions, Dry Skin, Erythema, Furuncle, Hirsutism, Lesions, New Lesions, Non-Healing Lesions, Photosensitivity, Pruritus, Rash, Skin Pain, Skin Ulcer, Sores, Striae, Swelling, Unusual Bruising, Wounds, Jaundice, Other - Neurological Neurological: absent: As Per HPI, Abnormal Gait, Abnormal Hearing, Abnormal Movements, Abnormal Speech, Behavioral Changes, Burning Sensations, Confusion, Convulsions, Disequilibrium, Dizziness, Numbness, Focal Weakness, Frequent Falls, Headaches, Lack of Coordination, Loss of Vision, Memory Loss, Paresthesias, Radicular Pain, Restless Legs, Sensory Deficit, Syncope, Tingling, Tremor, Vertigo, Weakness, Other Visual Disturbances, Other - Psychiatric Psychiatric: absent: As Per HPI, Abnormal Sleep Pattern, Anhedonia, Anxiety, Auditory Hallucinations, Behavioral Changes, Change in Appetite, Change in Libido, Confusion, Depression, Difficulty Concentrating, Hallucinations, Homicidal Ideation, Hopelessness, Irritability, Memory Loss, Mood Swings, Panic Attacks, Paranoia, Suicidal Ideation, Visual Hallucinations, Tactile Hallucina tions, Other - Endocrine Endocrine: absent: As Per HPI, Change in Body Appearance, Change in Libido, Cold Intolorance, Deepening of Voice, Excessive Sweating, Fatigue, Flushing, Heat Intolorance, Increase in Ring/Shoe/Hat Size, Palpitations, Polydipsia, Polypha cameron, Polyuria, Other - Hematologic/Lymphatic Hematologic: absent: As Per HPI, Easy Bleeding, Easy Bruising, Lymphadenopathy, Other Past Patient History - Infectious Disease Hx of Infectious Diseases: None - Past Medical History & Family History Past Medical History?: Yes - Past Social History Smoking Status: Never Smoked - CARDIAC Hx Cardiac Disorders: No - PULMONARY Hx Respiratory Disorders: No - NEUROLOGICAL Hx Neurological Disorder: No - HEENT Hx HEENT Problems: No - RENAL Hx Chronic Kidney Disease: No - ENDOCRINE/METABOLIC Hx Endocrine Disorders: No - HEMATOLOGICAL/ONCOLOGICAL Hx Blood Disorders: Yes Hx AIDS: No Hx Human Immunodeficiency Virus (HIV): Yes - INTEGUMENTARY Hx Dermatological Problems: No - MUSCULOSKELETAL/RHEUMATOLOGICAL Hx Musculoskeletal Disorders: No Hx Falls: No - GASTROINTESTINAL Hx Gastrointestinal Disorders: Yes Hx Gastritis: Yes - GENITOURINARY/GYNECOLOGICAL Hx Genitourinary Disorders: No - PSYCHIATRIC Hx Substance Use: No - SURGICAL HISTORY Hx Surgeries: No - ANESTHESIA Hx Anesthesia: No Hx Anesthesia Reactions: No Hx Malignant Hyperthermia: No Has any member of the family had a problem w/ anesthesia?: No Meds Allergies/Adverse Reactions: Allergies Allergy/AdvReac Type Severity Reaction Status Date / Time No Known Allergies Allergy Verified 08/24/18 20:19 - Medications Medications: Current Medications Famotidine (Pepcid) 20 mg PO BID [facility] Last Admin: 09/01/18 09:25 Dose: 20 mg Lactated Ringer's (Lactated Ringer's) 1,000 mls @ 125 mls/hr IV .Q8H [facility] Last Admin: 09/01/18 11:04 Dose: 125 mls/hr Ondansetron HCl (Zofran Inj) 4 mg IVP Q6 PRN PRN Reason: Nausea/Vomiting Physical Exam - Constitutional Appears: Non-toxic, Chronically Ill - Head Exam Head Exam: NORMOCEPHALIC - Eye Exam Eye Exam: Scleral icterus - ENT Exam ENT Exam: Mucous Membranes Dry - Neck Exam Neck exam: Negative for: Lymphadenopathy - Respiratory Exam Respiratory Exam: Decreased Breath Sounds, Clear to Auscultation Bilateral - Cardiovascular Exam Cardiovascular Exam: REGULAR RHYTHM, +S1, +S2 - GI/Abdominal Exam GI & Abdominal Exam: Diminished Bowel Sounds, Distended, Soft, Tenderness. absent: Rebound, Rigid - Rectal Exam Rectal Exam: Deferred - Exam Exam: NORMAL INSPECTION - Extremities Exam Extremities exam: Negative for: pedal edema - Back Exam Back exam: absent: CVA tenderness (L), CVA tenderness (R) - Neurological Exam Neurological exam: Alert, CN II-XII Intact, Oriented x3, Reflexes Normal - Psychiatric Exam Psychiatric exam: Depressed - Skin Skin Exam: Dry Results - Vital Signs Recent Vital Signs: Last Vital Signs Temp 99.2 F 09/01/18 12:12 Pulse 61 09/01/18 12:12 Resp 18 09/01/18 12:12 BP 118/76 09/01/18 12:12 Pulse Ox 98 09/01/18 12:12 - Labs Result Diagrams: 09/01/18 06:00 09/01/18 09:35 Labs: Laboratory Results - last 24 hr 09/01/18 09/01/18 09/01/18 05:30 06:00 06:00 WBC 4.6 L RBC 5.18 Hgb 15.1 Hct 46.6 MCV 89.9 D MCH 29.2 MCHC 32.4 L RDW 15.5 H Plt Count 191 MPV 8.4 Neut % (Auto) 53.1 Lymph % (Auto) 31.4 [place] % (Auto) 13.3 H Eos % (Auto) 1.0 Baso % (Auto) 1.2 Neut # (Auto) 2.4 Lymph # (Auto) 1.4 [place] # (Auto) 0.6 Eos # (Auto) 0.0 Baso # (Auto) 0.1 PT 13.2 H INR 1.2 Sodium Potassium Chloride Carbon Dioxide Anion Gap BUN Creatinine Est GFR ( Amer) Est GFR (Non-Af Amer) Random Glucose Calcium Phosphorus 4.3 Magnesium 2.1 Total Bilirubin Direct Bilirubin 13.1 H AST ALT Alkaline Phosphatase Total Protein Albumin Globulin Albumin/Globulin Ratio 09/01/18 09/01/18 06:00 09:35 WBC 4.2 L RBC 5.30 Hgb 15.5 Hct 47.7 MCV 90.0 MCH 29.3 MCHC 32.6 L RDW 15.3 H Plt Count 196 MPV Neut % (Auto) Lymph % (Auto) [place] % (Auto) Eos % (Auto) Baso % (Auto) Neut # (Auto) Lymph # (Auto) [place] # (Auto) Eos # (Auto) Baso # (Auto) PT INR Sodium 137 Potassium 4.0 Chloride 102 Carbon Dioxide 24 Anion Gap 15 BUN 4 L Creatinine 0.6 L Est GFR ( Amer) > 60 Est GFR (Non-Af Amer) > 60 Random Glucose 111 H Calcium 9.1 Phosphorus Magnesium Total Bilirubin 15.0 H Direct Bilirubin AST 318 H D ALT 379 H D Alkaline Phosphatase 180 H Total Protein 8.1 Albumin 3.9 Globulin 4.2 H Albumin/Globulin Ratio 0.9 L Assessment & Plan (1) Cholecystitis Status: Acute (2) Elevated liver enzymes Status: Acute (3) Jaundice Status: Acute (4) Abdominal pain Status: Acute (5) Alcohol abuse Status: Acute (6) Gastritis Status: Acute - Assessment and Plan (Free Text) Assessment: Hold Arsen for now surgery and GI on board doubt acute cholecystitis likely alcoholic hepatitis- acute cont rx as ordered
--- NOTE | 2018-09-01 21:11 | CP.PCM.PN ---
Subjective - Date & Time of Evaluation Date of Evaluation: 09/01/18 Time of Evaluation: 09:00 - Subjective Subjective: Feels well , tolerating diet. Objective - Vital Signs/Intake and Output Vital Signs (last 24 hours): Temp Pulse Resp BP Pulse Ox 97.7 F 65 20 125/80 97 09/01/18 20:44 09/01/18 20:44 09/01/18 20:44 09/01/18 20:44 09/01/18 20:44 - Medications Medications: Current Medications Famotidine (Pepcid) 20 mg PO BID [facility] Last Admin: 09/01/18 16:37 Dose: 20 mg Lactated Ringer's (Lactated Ringer's) 1,000 mls @ 125 mls/hr IV .Q8H [facility] Last Admin: 09/01/18 11:04 Dose: 125 mls/hr Ondansetron HCl (Zofran Inj) 4 mg IVP Q6 PRN PRN Reason: Nausea/Vomiting - Labs Labs: 09/01/18 06:00 09/01/18 09:35 PT 13.2 Seconds (9.8-13.1) H 09/01/18 06:00 INR 1.2 09/01/18 06:00 APTT 39.1 Seconds (25.6-37.1) H 08/31/18 09:18 - Head Exam Head Exam: ATRAUMATIC - Eye Exam Eye Exam: Scleral icterus Pupil Exam: PERRL - ENT Exam ENT Exam: Mucous Membranes Moist - Neck Exam Neck Exam: Full ROM - Respiratory Exam Respiratory Exam: Clear to Ausculation Bilateral - Cardiovascular Exam Cardiovascular Exam: REGULAR RHYTHM - GI/Abdominal Exam GI & Abdominal Exam: Soft. absent: Tenderness Assessment and Plan (1) Elevated liver enzymes Assessment & Plan: Transaminases slightly better. Patient tolerating diet. Serology is pending. Status: Acute
[2018-09-02 05:44] VITALS: RESP 18; O2SAT 96
[2018-09-02 06:23] LABS: ALB/GLOB RATIO 0.9 (1.0-2.1); ALT/SGPT 300 U/L (21-72); AST/SGOT 236 U/L (17-59); BILIRUBIN,DIRECT 12.4 mg/ml (0.0-0.4); BLOOD UREA NITROGEN 7 mg/dl (9-20); CALCIUM 9.1 mg/dL (8.4-10.2); GFR NON-AFRICAN AMERICAN > 60
[2018-09-02 08:32] VITALS: BP 117/72; TEMP 98.6
[2018-09-02 09:06] LABS: HEPATITIS B SURFACE AG Negative (NEGATIVE)
[2018-09-02 09:11] LABS: HEPATITIS A IGM NEGATIVE (NEGATIVE); HEPATITIS B CORE AB NEGATIVE (NEGATIVE)
--- NOTE | 2018-09-02 10:47 | CP.PCM.PCO ---
Assessment & Plan - Assessment and Plan (Free Text) Assessment: Patient seen and examined this morning VSS, alert awake oriented. denies chest pain nausea vomiting diarrhea shortness of breath abdomen soft nontender, +jaundice. Patient LFTs trending downward, Discussed with Dr Marinelli, cleared for dc with follow up. Follow up with Dr Hermosillo/ tarun martino program.
[2018-09-02 11:23] VITALS: PULSE 62
[2018-09-02 11:34] LABS: HEPATITIS C ANTIBODY REACTIVE (NEGATIVE)
--- NOTE | 2018-09-02 19:49 | CP.PCM.DIS ---
Provider - Provider Date of Admission: 08/31/18 11:51 Attending physician: Andrew Hermosillo MD Time Spent in preparation of Discharge (in minutes): 30 Diagnosis - Discharge Diagnosis (1) Elevated liver enzymes Status: Acute (2) Jaundice Status: Acute (3) Hepatitis C antibody test positive Status: Acute Hospital Course - Lab Results Lab Results: Micro Results 08/31/18 09:43 Blood-Venous Blood Culture - Preliminary NO GROWTH AFTER 48 HOURS 08/31/18 09:10 Blood-Venous Blood Culture - Preliminary NO GROWTH AFTER 48 HOURS Most Recent Lab Values WBC 4.2 K/uL (4.8-10.8) L 09/01/18 06:00 RBC 5.30 Mil/uL (4.40-5.90) 09/01/18 06:00 Hgb 15.5 g/dL (12.0-18.0) 09/01/18 06:00 Hct 47.7 % (35.0-51.0) 09/01/18 06:00 MCV 90.0 fl (80.0-94.0) 09/01/18 06:00 MCH 29.3 pg (27.0-31.0) 09/01/18 06:00 MCHC 32.6 g/dL (33.0-37.0) L 09/01/18 06:00 RDW 15.3 % (11.5-14.5) H 09/01/18 06:00 Plt Count 196 K/uL (130-400) 09/01/18 06:00 MPV 8.4 fl (7.2-11.7) 09/01/18 05:30 Neut % (Auto) 53.1 % (50.0-75.0) 09/01/18 05:30 Lymph % (Auto) 31.4 % (20.0-40.0) 09/01/18 05:30 [place] % (Auto) 13.3 % (0.0-10.0) H 09/01/18 05:30 Eos % (Auto) 1.0 % (0.0-4.0) 09/01/18 05:30 Baso % (Auto) 1.2 % (0.0-2.0) 09/01/18 05:30 Neut # (Auto) 2.4 K/uL (1.8-7.0) 09/01/18 05:30 Lymph # (Auto) 1.4 K/uL (1.0-4.3) 09/01/18 05:30 [place] # (Auto) 0.6 K/uL (0.0-0.8) 09/01/18 05:30 Eos # (Auto) 0.0 K/uL (0.0-0.7) 09/01/18 05:30 Baso # (Auto) 0.1 K/uL (0.0-0.2) 09/01/18 05:30 PT 13.2 Seconds (9.8-13.1) H 09/01/18 06:00 INR 1.2 09/01/18 06:00 APTT 39.1 Seconds (25.6-37.1) H 08/31/18 09:18 pO2 39 mm/Hg (30-55) 08/31/18 09:45 VBG pH 7.42 (7.32-7.43) 08/31/18 09:45 VBG pCO2 42 mmHg (40-60) 08/31/18 09:45 VBG HCO3 26.2 mmol/L 08/31/18 09:45 VBG Total CO2 28.5 mmol/L (22-28) H 08/31/18 09:45 VBG O2 Sat (Calc) 79.6 % (40-65) H 08/31/18 09:45 VBG Base Excess 2.4 mmol/L (0.0-2.0) H 08/31/18 09:45 VBG Potassium 5.8 mmol/L (3.6-5.2) H 08/31/18 09:45 Sodium 132.0 mmol/L (132-148) 08/31/18 09:45 Chloride 103.0 mmol/L (98-107) 08/31/18 09:45 Glucose 100 mg/dL (75-110) 08/31/18 09:45 Lactate 0.9 mmol/L (0.7-2.1) 08/31/18 09:45 FiO2 21.0 % 08/31/18 09:45 Sodium 138 mmol/l (132-148) 09/02/18 04:20 Potassium 4.2 MMOL/L (3.6-5.0) 09/02/18 04:20 Chloride 104 mmol/L (98-107) 09/02/18 04:20 Carbon Dioxide 24 mmol/L (22-30) 09/02/18 04:20 Anion Gap 14 (10-20) 09/02/18 04:20 BUN 7 mg/dl (9-20) L 09/02/18 04:20 Creatinine 0.6 mg/dl (0.8-1.5) L 09/02/18 04:20 Est GFR ( Amer) > 60 09/02/18 04:20 Est GFR (Non-Af Amer) > 60 09/02/18 04:20 Random Glucose 100 mg/dL (75-110) 09/02/18 04:20 Calcium 9.1 mg/dL (8.4-10.2) 09/02/18 04:20 Phosphorus 4.3 mg/dl (2.5-4.5) 09/02/18 04:20 Magnesium 2.1 MG/DL (1.6-2.3) 09/02/18 04:20 Total Bilirubin 14.4 mg/dl (0.2-1.3) H 09/02/18 04:20 Direct Bilirubin 12.4 mg/ml (0.0-0.4) H 09/02/18 04:20 AST 236 U/L (17-59) H D 09/02/18 04:20 ALT 300 U/L (21-72) H D 09/02/18 04:20 Alkaline Phosphatase 174 U/L (38-126) H 09/02/18 04:20 Total Protein 8.4 G/DL (6.3-8.2) H 09/02/18 04:20 Albumin 4.0 g/dL (3.5-5.0) 09/02/18 04:20 Globulin 4.4 gm/dL (2.2-3.9) H 09/02/18 04:20 Albumin/Globulin Ratio 0.9 (1.0-2.1) L 09/02/18 04:20 Lipase 124 U/L (23-300) 08/31/18 09:18 Venous Blood Potassium 5.8 mmol/L (3.6-5.2) H 08/31/18 09:45 Urine Opiates Screen Negative (NEGATIVE) 08/31/18 09:18 Urine Methadone Screen Negative (NEGATIVE) 08/31/18 09:18 Ur Barbiturates Screen Negative (NEGATIVE) 08/31/18 09:18 Ur Phencyclidine Scrn Negative (NEGATIVE) 08/31/18 09:18 Ur Amphetamines Screen Negative (NEGATIVE) 08/31/18 09:18 U Benzodiazepines Scrn Negative (NEGATIVE) 08/31/18 09:18 U Oth Cocaine Metabols Negative (NEGATIVE) 08/31/18 09:18 U Cannabinoids Screen Negative (NEGATIVE) 08/31/18 09:18 Alcohol, Quantitative < 10 mg/dl (0-10) 08/31/18 09:18 Hepatitis A IgM Ab Negative (NEGATIVE) 08/31/18 13:30 Hep Bs Antigen Negative (NEGATIVE) 08/31/18 13:30 Hep Bs Antibody Negative (NEGATIVE) 08/31/18 13:30 Hep B Core IgM Ab Negative (NEGATIVE) 08/31/18 13:30 Hepatitis C Antibody Reactive (NEGATIVE) 08/31/18 13:30 - Hospital Course Hospital Course: 38 male with PMHx of HIV on Genvoya, hx of ETOH use, admitted due to Transaminitis, hyperbilirubinemia. GI, Surgery, and ID consulted on patient. No surgical interventions needed. Patient was found to be Hep C positive. Patient to follow up with PCP and GI as outpatient this week. Discharge Exam - Head Exam Head Exam: NORMAL INSPECTION - Respiratory Exam Respiratory Exam: UNREMARKABLE - Cardiovascular Exam Cardiovascular Exam: +S1, +S2 - GI/Abdominal Exam GI & Abdominal Exam: Unremarkable - Neurological Exam Neurological exam: Alert, Oriented x3 - Psychiatric Exam Psychiatric exam: Normal Affect, Normal Mood - Skin Skin Exam: Normal Color, Warm Discharge Plan - Follow Up Plan Condition: STABLE Disposition: HOME/ ROUTINE Instructions: Jaundice, Adult (DC), Alcohol Abuse and Alcoholism (DC) Additional Instructions: follow up with and tarun amaya in 1 week Referrals: Andrew Hermosillo MD [Medical Doctor] - Scout Marinelli MD [Staff Provider] -
== END 2018-09-02 11:22 | disposition home or self-care (01) | DRG 433 ==
LOC: H.ER 07:20 → H.ERHOLD 11:51 → H.TEL 16:22
PROVIDERS: ADMIT Family Medicine; ATTEND Family Medicine
PROC: 3E0234Z Introduction of Serum, Toxoid and Vaccine into Muscle, Percutaneous Approach (ICD-10-PCS; principal; 2018-08-31)
DX: K70.10 Alcoholic hepatitis without ascites (principal); B17.10 Acute hepatitis C without hepatic coma; K29.20 Alcoholic gastritis without bleeding; F10.10 Alcohol abuse, uncomplicated; Z21 Asymptomatic human immunodeficiency virus [HIV] infection status; K76.0 Fatty (change of) liver, not elsewhere classified; Z23 Encounter for immunization

== ENCOUNTER 2018-12-03 14:20 | Emergency (ER) | payer OTHER, SELFPAY ==
[2018-12-03 14:26] VITALS: RESP 18; O2SAT 96
[2018-12-03] MEDS ORDERED: Lidocaine 5% Patch TD STA (15:14)
[2018-12-03] MEDS ORDERED: Lidocaine 5% Patch TD ONE (15:34)
--- NOTE | 2018-12-03 16:10 | ED PDOC ---
HPI: General Adult Time Seen by Provider: 12/03/18 14:47 Chief Complaint (Nursing): Back Pain Chief Complaint (Provider): Sore Throat, Back Pain History Per: Patient History/Exam Limitations: no limitations Onset/Duration Of Symptoms: Days (x3 days throat; x2 back) Current Symptoms Are (Timing): Still Present Additional Complaint(s): 38 year old male presents to the ED for evaluation of a sore throat for the past three days, pain worse with swallowing described as feeling dry in nature. He notes that 3-4 years ago he had a benign polyp removed from his vocal cord by an [place] doctor in [place] that he cannot remember the exact name of. Additionally, patient is reporting two days of lower back pain s/p bending down to grab an object underneath his bed. Yesterday, he states the pain worsened and was only mildly relieved with a patch. Otherwise denies fever, chills, cough, congestion, rash, dysuria, hematuria, incontinence, and abdominal pain. Of note, patient states on route to ED the sun was beating down on the right side of his face and that is where the triage nurse subsequently took his temperature upon arrival. He denies feeling feverish and has not taken any antipyretic or oral pain medications. PMD: Vaibhav Leal Past Medical History Reviewed: Historical Data, Nursing Documentation, Vital Signs Vital Signs: Last Vital Signs Temp 99.6 F 12/03/18 14:52 Pulse 99 H 12/03/18 14:52 Resp 18 12/03/18 14:52 BP 134/76 12/03/18 14:52 Pulse Ox 96 12/03/18 14:52 - Medical History PMH: Gastritis, HIV Denies: Chronic Kidney Disease - Surgical History Surgical History: No Surg Hx - Family History Family History: States: Unknown Family Hx - Social History Current smoker - smoking cessation education provided: No Alcohol: Social Drugs: Denies - Immunization History Hx Tetanus Toxoid Vaccination: No Hx Influenza Vaccination: No Hx Pneumococcal Vaccination: No - Home Medications Home Medications: Ambulatory Orders Medication Instructions Recorded Elviteg/Cob/Emtri/Tenof Alafen 1 each PO DAILY 08/31/18 [Genvoya Tablet] Famotidine [Pepcid] 20 mg PO BID 08/31/18 Ondansetron [Zofran Odt] 4 mg PO BID PRN 08/31/18 traZODone [Desyrel] 100 mg PO HS 08/31/18 Amoxicillin [Amoxil 500 mg Cap] 500 mg PO TID #30 cap 12/03/18 Cyclobenzaprine [Cyclobenzaprine 10 mg PO Q8 PRN #10 tab 12/03/18 HCl] Naproxen [Naprosyn] 500 mg PO BID PRN #10 tab 12/03/18 - Allergies Allergies/Adverse Reactions: Allergies Allergy/AdvReac Type Severity Reaction Status Date / Time No Known Allergies Allergy Verified 12/03/18 14:23 Review of Systems ROS Statement: Except As Marked, All Systems Reviewed And Found Negative Constitutional: Negative for: Fever, Chills ENT: Positive for: Throat Pain (worses with swallowing; described as feeling dry). Negative for: Nose Congestion Respiratory: Negative for: Cough Gastrointestinal: Negative for: Abdominal Pain Genitourinary Male: Negative for: Dysuria, Incontinence, Hematuria Musculoskeletal: Positive for: Back Pain (lower) Skin: Negative for: Rash Physical Exam - Reviewed Nursing Documentation Reviewed: Yes Vital Signs Reviewed: Yes - Physical Exam Appears: Positive for: No Acute Distress Skin: Positive for: Normal Color, Warm, Dry. Negative for: Rash Eye Exam: Positive for: Normal appearance, EOMI, PERRL ENT: Positive for: TM Is/Are (bilaterally: non-bulging, non-erythematous), Pharyngeal Erythema, Other (able to swallow saliva; no trismus). Negative for: Tonsillar Exudate, Tonsillar Swelling Cardiovascular/Chest: Positive for: Regular Rate, Rhythm Respiratory: Negative for: Respiratory Distress Gastrointestinal/Abdominal: Positive for: Normal Exam, Soft. Negative for: Tenderness, Organomegaly Back: Positive for: Other (bilateral para lumbar tenderness, greatest on right side). Negative for: L CVA Tenderness, R CVA Tenderness, Vertebral Tenderness Lymphatic: Negative for: Adenopathy (cervical) - ECG O2 Sat by Pulse Oximetry: 96 (RA) Pulse Ox Interpretation: Normal Medical Decision Making Medical Decision Making: Time: 1513 Initial Impression: sore throat, back pain Initial Plan: --Flexeril 10mg PO --Lidocaine 5% 1 ea TD --LS-spine XR --Rapid strep --Urinalysis 1705 Patient informed of results and advised to follow up with PMD for further evaluation of back pain and ENT if his sore throat persists. ----- Scribe Attestation: Documented by Virginia Quispe, acting as a scribe for Rowdy Mccall PA-C. Provider Scribe Attestation: All medical record entries made by the Scribe were at my direction and personally dictated by me. I have reviewed the chart and agree that the record accurately reflects my personal performance of the history, physical exam, medical decision making, and the department course for this patient. I have also personally directed, reviewed, and agree with the discharge instructions and disposition. Disposition - Clinical Impression Clinical Impression: Pharyngitis, Low back pain - Patient ED Disposition Is Patient to be Admitted: No - Disposition Referrals: [facility] [Outside] Jose Mendoza MD [Staff Provider] - Disposition: Routine/Home Disposition Time: 17:06 Condition: IMPROVED Additional Instructions: FOLLOW UP WITH YOUR DOCTOR FOR FURTHER EVALUATION RETURN TO ED IMMEDIATELY IF SYMPTOMS WORSEN LUIS DONG, thank you for letting us take care of you today. Your provider was Husam Mclain MD and you were treated for LOWER BACK PAIN. The emergency medical care you received today was directed at your acute symptoms. If you were prescribed any medication, please fill it and take as directed. It may take several days for your symptoms to resolve. Return to the Emergency Department if your symptoms worsen, do not improve, or if you have any other problems. Please contact your doctor or call one of the physicians/clinics you have been referred to that are listed on the Patient Visit Information form that is included in your discharge packet. Bring any paperwork you were given at discharge with you along with any medications you are taking to your follow up visit. Our treatment cannot replace ongoing medical care by a primary care provider outside of the emergency department. Thank you for allowing the [facility] team to be part of your care today. If you had an X-Ray or CT scan: A Radiologist will review the ED reading if any change in treatment is needed we will contact you. If you had a blood, urine, or wound culture: It will take several days for the results, if any change in treatment is needed we will contact you. If you had an STI test: It will take 48 hours for the results. Please call after 1 week if you have not heard back. Prescriptions: Amoxicillin [Amoxil 500 mg Cap] 500 mg PO TID #30 cap Cyclobenzaprine [Cyclobenzaprine HCl] 10 mg PO Q8 PRN #10 tab PRN Reason: Muscle Spasm Naproxen [Naprosyn] 500 mg PO BID PRN #10 tab PRN Reason: Pain Instructions: Low Back Pain (DC), Sore Throat, Adult (DC) Forms: [employer] (Tanzanian)
--- NOTE | 2018-12-03 16:17 | RAD ---
Date of service: 12/03/2018 PROCEDURE: Radiographs of the Lumbar Spine. HISTORY: pain COMPARISON: No prior. FINDINGS: BONES: Straightened lumbar curvature. No fracture or spondylolisthesis appreciable. DISC SPACES: Mild disc height loss L4-5 indicating limited degenerative disc disease with accompanying osteophytes identified anteriorly. OTHER FINDINGS: None. IMPRESSION: Limited degenerative disease L4-5 peer straightened curvature. No fracture or spondylolisthesis appreciated.
[2018-12-03 16:22] LABS: URINE BACTERIA RARE (<OCC); URINE BILIRUBIN NEGATIVE (NEGATIVE); URINE BLOOD NEGATIVE (NEGATIVE); URINE CLARITY SLIGHTY-CLOUDY (Clear); URINE COLOR AMBER (YELLOW); URINE GLUCOSE (UA) NEG (NEGATIVE); URINE LEUKOCYTE ESTERASE NEG Leu/uL (Negative); URINE PROTEIN NEGATIVE (NEGATIVE)
[2018-12-03 17:06] VITALS: BP 119/70; PULSE 94; TEMP 99
== END 2018-12-03 17:20 | disposition home or self-care (01) ==
LOC: H.ER 14:20
DX: J02.9 Acute pharyngitis, unspecified (principal); M54.5 Low back pain

== ENCOUNTER 2019-02-28 16:48 | Emergency (ER) | payer OTHER ==
[2019-02-28 16:54] VITALS: BP 131/78; PULSE 86; RESP 18; TEMP 98.1; O2SAT 98
--- NOTE | 2019-02-28 17:39 | ED PDOC ---
HPI: Back Time Seen by Provider: 02/28/19 17:20 Chief Complaint (Nursing): Back Pain Chief Complaint (Provider): Back pain History Per: Patient History/Exam Limitations: no limitations Current Symptoms Are (Timing): Still Present Additional Complaint(s): 38 y/o male, with a history of chronic back pain, presents to the ER complaining of back pain. Patient reports he went to the gym on Sunday and after working out, he felt lower back pain radiating to the left. Denies any pain or numbness to the lower extremities. Patient states he has a history of back problems and states he comes to the ER about every 6 months with the same complaints. He is usually discharged with Lidoderm, Naproxen, and Flexeril. Last time patient medicated himself was at 05:00 this morning. Around 01:00 today, he woke up and was unable to walk to the bathroom and took Naproxen at that time. At 05:00, patient felt better but still had some pain. PMD: none provided Past Medical History Reviewed: Historical Data, Nursing Documentation, Vital Signs Vital Signs: Last Vital Signs Temp 98.1 F 02/28/19 16:52 Pulse 86 02/28/19 16:52 Resp 18 02/28/19 16:52 BP 131/78 02/28/19 16:52 Pulse Ox 98 02/28/19 16:52 Primary Care Provider: Non [facility] Provider, - Medical History PMH: Back Problems, Gastritis, HIV Denies: Chronic Kidney Disease - Surgical History Surgical History: No Surg Hx - Family History Family History: States: Unknown Family Hx - Immunization History Hx Tetanus Toxoid Vaccination: No Hx Influenza Vaccination: No Hx Pneumococcal Vaccination: No - Home Medications Home Medications: Ambulatory Orders Medication Instructions Recorded Elviteg/Cob/Emtri/Tenof Alafen 1 each PO DAILY 08/31/18 [Genvoya Tablet] Famotidine [Pepcid] 20 mg PO BID 08/31/18 Ondansetron [Zofran Odt] 4 mg PO BID PRN 08/31/18 traZODone [Desyrel] 100 mg PO HS 08/31/18 Amoxicillin [Amoxil 500 mg Cap] 500 mg PO TID #30 cap 12/03/18 Cyclobenzaprine [Cyclobenzaprine 10 mg PO Q8 PRN #10 tab 12/03/18 HCl] Naproxen [Naprosyn] 500 mg PO BID PRN #10 tab 12/03/18 Cyclobenzaprine [Cyclobenzaprine 10 mg PO Q8H PRN #15 tab 02/28/19 HCl] Lidocaine 5% [Lidoderm] 1 ea TD Q12H PRN #10 patch 02/28/19 Naproxen 500 mg PO Q12H PRN #30 tab 02/28/19 - Allergies Allergies/Adverse Reactions: Allergies Allergy/AdvReac Type Severity Reaction Status Date / Time No Known Allergies Allergy Verified 12/03/18 14:23 Review of Systems ROS Statement: Except As Marked, All Systems Reviewed And Found Negative Musculoskeletal: Positive for: Back Pain. Negative for: Leg Pain Neurological: Negative for: Numbness (to lower extremities) Physical Exam - Reviewed Nursing Documentation Reviewed: Yes Vital Signs Reviewed: Yes - Physical Exam Appears: Positive for: No Acute Distress Head Exam: Positive for: ATRAUMATIC, NORMOCEPHALIC Skin: Positive for: Normal Color, Warm, Dry Eye Exam: Positive for: Normal appearance Neck: Positive for: Normal, Painless ROM Cardiovascular/Chest: Positive for: Regular Rate, Rhythm Respiratory: Positive for: Normal Breath Sounds. Negative for: Wheezing, Respiratory Distress Back: Positive for: Other (Point tenderness to lower lumbar spine. Lidoderm patch to this area which patient placed today. ) - ECG O2 Sat by Pulse Oximetry: 98 (RA) Pulse Ox Interpretation: Normal Medical Decision Making Medical Decision Making: Initial Impression: Back pain Initial Plan: --Toradol 60mg IM --Flexeril 10mg PO 18:21 Upon reevaluation, patient states he feels better and wants to go home. Prescription for Lidoderm, Naproxen, and Flexeril given. With Flexeril, patient advised to not drive or operate heavy machinery due to side effect of drowsiness. Return precautions given and patient verbally demonstrates agreement and understanding of plan. Scribe Attestation: Documented by Dimitri Santoro acting as a scribe for Fawn Del Valle NP. Provider Scribe Attestation: All medical record entries made by the Scribe were at my direction and personally dictated by me. I have reviewed the chart and agree that the record accurately reflects my personal performance of the history, physical exam, medical decision making, and the department course for this patient. I have also personally directed, reviewed, and agree with the discharge instructions and disposition. Disposition - Clinical Impression Clinical Impression: Back pain, Low back pain - Patient ED Disposition Is Patient to be Admitted: No - Disposition Disposition: Routine/Home Disposition Time: 17:45 Condition: IMPROVED Prescriptions: Cyclobenzaprine [Cyclobenzaprine HCl] 10 mg PO Q8H PRN #15 tab PRN Reason: Muscle Spasm Lidocaine 5% [Lidoderm] 1 ea TD Q12H PRN #10 patch PRN Reason: Pain, Moderate (4-7) Naproxen 500 mg PO Q12H PRN #30 tab PRN Reason: Pain, Moderate (4-7) Instructions: Low Back Pain in Adults Print Language: GREENLANDIC - POA Present On Arrival: None
== END 2019-02-28 18:42 | disposition home or self-care (01) ==
LOC: SUPCPDRO 16:48 → H.ER 16:48
DX: G89.29 Other chronic pain (principal); M54.5 Low back pain
CPT/HCPCS: 96372; 99283; J1885